=== PATIENT | female | born 2000 | race African-American/Black ===

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

== ENCOUNTER 2019-01-25 03:59 | Outpatient (CLI) | payer MEDICAID ==
[2019-01-25 04:34] LABS: APPEARANCE,URINE CLEAR; BILIRUBIN,URINE NEGATIVE (NEGATIVE); COLOR,URINE STRAW; GLUCOSE, URINE NEGATIVE (NEGATIVE); KETONES,URINE NEGATIVE (NEGATIVE); LEUKOCYTE ESTERASE,URINE SMALL (NEGATIVE); NITRITE,URINE NEGATIVE (NEGATIVE); PROTEIN,URINE NEGATIVE (NEGATIVE); URINE SPECIFIC GRAVITY 1.012; UROBILINOGEN,URINE NEGATIVE mg/dL (<2.0)
[2019-01-25 04:52] LABS: URINE AMPHETAMINES SCREEN NEGATIVE; URINE BARBITURATES SCREEN NEGATIVE; URINE BENZODIAZEPINES SCREEN NEGATIVE; URINE COCAINE SCREEN NEGATIVE; URINE MARIJUANA (THC) SCREEN NEGATIVE; URINE METHADONE SCREEN NEGATIVE; URINE PHENCYCLIDINE SCREEN NEGATIVE
[2019-01-25] MEDS ORDERED: HYDROXYZINE PAMOATE 50 MG CAPSULE ONE (05:52)
[2019-01-25] MEDS ORDERED: ACETAMINOPHEN 325 MG TABLET ONE (05:53)
--- NOTE | 2019-01-25 06:08 | Non Stress Test Report ---
Non Stress Test Datetime Report Generated by CPN: 01/25/2019 06:08 DEMOGRAPHIC EGA NST: 37.6 INDICATION Indication for Study: Ordered by Provider Indication for Study (NST) Other: LC MONITORING Monitor Explained: Monitor Explained; Test Explained; Patient Verbalized Understanding Time on Monitor: 01/25/2019 04:12 Time off Monitor: 01/25/2019 04:36 NST Duration: 24 NST INTERVENTIONS NST Interventions: PO Hydration Physician Notified NST: Dr. Clarence BABY A: [id number] BABY A Movement : Present Contraction Frequency : 3-5 FHR Baseline : 125 Accelerations : 15X15 Decelerations : None Variability : Moderate 6-25bpm NST Review: Meets Criteria for Reactive NST NST Review and Verified By : Paul Bennett RN NST Results: Reactive NST REPORT Report Trigger: Send Report
== END 2019-01-25 06:04 | disposition home or self-care (01) ==
LOC: LC 03:59
PROVIDERS: ATTEND Obstetrics & Gynecology
PROC: 4A1HXCZ Monitoring of Products of Conception, Cardiac Rate, External Approach (ICD-10-PCS; principal; 2019-01-25)
DX: O47.1 False labor at or after 37 completed weeks of gestation (principal); Z3A.37 37 weeks gestation of pregnancy
CPT/HCPCS: 59025; 81005; 80307; J3490 ×2

== ENCOUNTER 2019-01-26 03:45 | Inpatient (IN) | payer MEDICAID ==
[2019-01-26] MEDS ORDERED: PENICILLIN G POTASSIUM 5,000,000 UNIT in DEXTROSE 5%-WATER 100 ML IV ONE (04:01)
[2019-01-26] MEDS ORDERED: RINGERS SOLUTION,LACTATED 1,000 ML IV PRN (04:01)
[2019-01-26] MEDS ORDERED: OXYTOCIN 10 UNIT/ML VIAL ONE (04:05)
[2019-01-26] MEDS ORDERED: LIDOCAINE 1% INJ-PF (10 MG/ML) 30 ML SDV ONE ×2 (04:05→05:22)
[2019-01-26] MEDS ORDERED: PENICILLIN G-K 5 MILLION UNIT VIAL ONE (04:05)
[2019-01-26] MEDS ORDERED: MISOPROSTOL 0.2 MG TABLET ONE (04:05)
[2019-01-26] MEDS ORDERED: OXYTOCIN/NORMAL SALINE 20 UNIT/1,000 ML RTUINJ ONE (04:05)
[2019-01-26] MEDS ORDERED: ONDANSETRON HCL INJ/PF 4 MG/2 ML SDV ONE (04:37)
[2019-01-26] MEDS ORDERED: ONDANSETRON HCL INJ/PF 4 MG/2 ML SDV IV ONE ×2 (04:38→04:57)
[2019-01-26 04:40] LABS: HEMATOCRIT 34.4 % (36.0-47.0); HEMOGLOBIN 11.3 g/dL (12.0-15.5); MEAN CORPUSCULAR HEMOGLOBIN 27.2 pg (27.0-33.4); MEAN CORPUSCULAR HGB CONC 32.9 g/dL (32.0-36.0); MEAN CORPUSCULAR VOLUME 83 fl (80-97); PLATELET COUNT 239 10^3/uL (150-450); RED BLOOD COUNT 4.15 10^6/uL (3.72-5.28); WHITE BLOOD COUNT 14.7 10^3/uL (4.0-10.5)
[2019-01-26 05:02] LABS: ANISOCYTOSIS 1+; BAND NEUTROPHILS % (MANUAL) 1 % (3-5); BASOPHILS % (MANUAL) 0 % (0-2); EOSINOPHILS % (MANUAL) 0 % (0-6); LYMPHOCYTES % (MANUAL) 0 % (13-45); MONOCYTES % (MANUAL) 0 % (3-13); SEGMENTED NEUTROPHILS % (MAN) 99 % (42-78); TOTAL CELLS COUNTED 100
[2019-01-26 05:03] LABS: PLATELET COMMENT ADEQUATE
[2019-01-26] MEDS ORDERED: OXYTOCIN/NORMAL SALINE 20 UNIT/1,000 ML RTUINJ IV PRN (05:41)
[2019-01-26] MEDS ORDERED: ZOLPIDEM TARTRATE 5 MG TABLET PO PRN (05:41)
[2019-01-26] MEDS ORDERED: ACETAMINOPHEN 325 MG TABLET PO PRN (05:41)
[2019-01-26] MEDS ORDERED: DIBUCAINE 1% OINTMENT 56 GM TP PRN (05:41)
[2019-01-26] MEDS ORDERED: PROMETHAZINE HCL 25 MG SUPP.RECT PR PRN (05:41)
[2019-01-26] MEDS ORDERED: DIPHENHYDRAMINE HCL 25 MG CAPSULE PO PRN (05:41)
[2019-01-26] MEDS ORDERED: GLYCERIN/WITCH HAZEL LEAF 1 EACH MED..WIPE TP PRN (05:41)
[2019-01-26] MEDS ORDERED: NA PHOS,M-B/NA PHOS,DI-BA (ADULT) 133 ML ENEMA PR PRN (05:41)
[2019-01-26] MEDS ORDERED: MAGNESIUM HYDROXIDE SUSP 30 ML UDCUP PO PRN (05:41)
[2019-01-26] MEDS ORDERED: BENZOCAINE/MENTHOL AEROSOL SPRAY 56 ML TOP PRN (05:41)
[2019-01-26] MEDS ORDERED: DIPH/PERTUSS(ACELL)/TETANUS VAC/PF 0.5 ML SYR (>=10YO) IM PRN (05:41)
[2019-01-26] MEDS ORDERED: MISOPROSTOL 0.2 MG TABLET PR PRN (05:41)
[2019-01-26] MEDS ORDERED: MEASLES,MUMPS&RUBELLA VACC/PF 0.5 ML VIAL SUBCUT PRN (05:41)
[2019-01-26] MEDS ORDERED: PROMETHAZINE HCL 25 MG TABLET PO PRN (05:41)
[2019-01-26] MEDS ORDERED: PSEUDOEPHEDRINE HCL 30 MG TABLET PO PRN (05:41)
[2019-01-26] MEDS ORDERED: ACETAMINOPHEN WITH CODEINE #3 TABLET PO PRN ×2 (05:41)
[2019-01-26] MEDS ORDERED: PROMETHAZINE HCL INJ 25 MG/1 ML VIAL IV PRN (05:41)
[2019-01-26] MEDS ORDERED: IBUPROFEN 800 MG TABLET ONE (06:06)
[2019-01-26] MEDS: IBUPROFEN 800 MG TABLET PO SCH ×3 (06:07→21:49)
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
--- NOTE | 2019-01-26 06:37 | Warning Signs in Babies ---
VOD Warning Signs Datetime Report Generated by [facility]: 01/26/2019 06:36 VOD#608 -Warning Signs in Babies: Viewed with Parent(s)/Family (01/26/2019 06:30:Yandy Miles RN)
[2019-01-26 06:56] LABS: CHLAM PCR NOT DETECTED (NOT DETECT)
--- NOTE | 2019-01-26 08:08 | Delivery Summary ---
Del Sum A-C Datetime Report Generated by CPN: 01/26/2019 08:07 DELIVERY PERSONNEL DELIVERY PERSONNEL: [id number] Delivery Doctor:: Heather Ledezma MD Labor and Delivery Nurse:: Yandy Miles RNlink trainer teacher Nurse:: Evelyn Mukherjee RN Stunt Performer:: Suzanne Mercer RN Nursery Nurse:: Patty Hernández RN Polishing Machine Operator/RUBBER PRESS OPERATOR: Loren Alonso, ST MATERNAL INFORMATION Delivery Anesthesia: Pudendal Medications After Delivery: Pitocin Drip 20 Units/1000ml NSS; Cytotec 1000mcg Per Rectum/Vagina Meds After Delivery Comment: Pitocin 20 units in 1,000 mL NS bolusing Estimated Blood Loss (ml): 179 Delivery QBL: 179 Delivery QBL Comment: 179ml Maternal Complications: Precipitous Labor (<3hrs) Provider Comments: Pt was AL then SROM then complete and desiered ot push. Reviewed pain management options with patient since she was not going to make it to get an epidural. SheVMI delivered in SUSAN presentation. No nuchal cord. Shoulders and body delivered without difficulty. cord doubly clamped and cut and infant to maternal abdomen for NRP. Bilateral labial laceration repaired with good hemostasis. uterine tone responded to cytotec 1000mcg ID. Placenta delivered intact spontaneously. LABOR SUMMARY EDC: 02/09/2019 00:00 No. Babies in Womb: 1 Attempted: No Labor Anesthesia: None LABOR INFORMATION Reason for Induction: Not Applicable Onset of Labor: 01/26/2019 03:50 Complete Dilatation: 01/26/2019 05:08 Group B Beta Strep: Unknown Antibiotics # of Doses: 1 Name of Antibiotic Given: pcn Steroids Given: None Reason Steroids Not Administered: Not Applicable MEMBRANES Membranes Rupture Method: Spontaneous Rupture of Membranes: 01/26/2019 05:06 Length of Rupture (hr): 0.18 Amniotic Fluid Color: Clear Amniotic Fluid Amount: Moderate Amniotic Fluid Odor: Normal STAGES OF LABOR Stage 1 hr: 1 Stage 1 min: 18 Stage 2 hr: 0 Stage 2 min: 9 Stage 3 hr: 0 Stage 3 min: 3 Total Time in Labor hr: 1 Total Time in Labor min: 30 VAGINAL DELIVERY Episiotomy: None Laceration #1: Vaginal Laceration Extension #1: N/A Other Laceration: Bilateral labial tear Laceration Repair: Yes Sponge Count Correct: Yes Sharps Count Correct: Yes CSECTION DELIVERY Primary Indication: N/A Secondary Indication: N/A CSection Incidence: N/A Labor: N/A Elective: N/A CSection Incision: N/A BABY A INFORMATION Infant Delivery Date/Time: 01/26/2019 05:17 Method of Delivery: Vaginal Born in Route : No : N/A Forceps: N/A Vacuum Extraction: N/A Shoulder Dystocia : No PRESENTATION/POSITION BABY A Presentation: Cephalic Cephalic Presentation: Vertex Vertex Position: Right Occipital Anterior Breech Presentation: N/A PLACENTA INFORMATION BABY A Placenta Delivery Time : 01/26/2019 05:20 Placenta Method of Delivery: Spontaneous Placenta Status: Delivered SCORES BABY A Heart Rate 1 min: >100 bpm Resp Effort 1 min: Good Cry Reflex Irritability 1 min: Cough or Sneeze or Pulls Away Muscle Tone 1 min: Active Motion Color 1 min: Blue/Pale Resuscitation Effort 1 min: Tactile Stimulation SCORE 1 MIN: 8 Heart Rate 5 min: >100 bpm Resp Effort 5 min: Good Cry Reflex Irritability 5 min: Cough or Sneeze or Pulls Away Muscle Tone 5 min: Active Motion Color 5 min: Body [place], Extremities Blue SCORE 5 MIN: 9 INFANT INFORMATION BABY A Gestational Age at Delivery: 38.0 Gestational Status: Early Term- 37- 38.6 Weeks Infant Outcome : Liveborn Infant Condition : Stable Sex: Male IDENTIFICATION BABY A Infant Verification Date/Time: 01/26/2019 05:38 ID Band Number: [id number] Mother's Name Verified: Yes Infant RN Verifying : NDoyle RN CGentilin RN WEIGHT/LENGTH BABY A Birthweight (gm): 2935 Weight (lb): 6 Infant Weight (oz): 8 Length (in): 19.00 Length (cm): 48.26 CORD INFORMATION BABY A No. Cord Vessels: 3 Nuchal Cord : N/A Cord Blood Taken: Yes-For Storage (Mom's Blood type +) Suction: Mouth ASSESSMENT BABY A Skin to Skin: Yes Skin to Skin Time (min): 60 Transferred To: Remains with Mother BABY B INFORMATION : N/A SIGNATURES Signature: with User ID: [email or web address]
[2019-01-26] MEDS: SENNOSIDES/DOCUSATE 8.6-50 MG 1 EACH TABLET PO SCH (09:33)
[2019-01-26] MEDS: DOCUSATE SODIUM 100 MG CAPSULE PO SCH ×2 (09:33→17:38)
[2019-01-26] MEDS: PRENATAL VITAMIN W DHA CAPSULE PO SCH (09:33)
[2019-01-26] MEDS: FERROUS SULFATE 325 MG TABLET PO SCH ×2 (09:33→17:38)
[2019-01-26] MEDS: FAMOTIDINE 20 MG TABLET PO SCH ×2 (09:33→21:49)
[2019-01-26] MEDS: PENICILLIN G POTASSIUM 2,500,000 UNIT in DEXTROSE 5%-WATER 50 ML IV SCH ×2 (10:14→18:40)
[2019-01-27] MEDS: IBUPROFEN 800 MG TABLET PO SCH ×3 (06:08→22:05)
[2019-01-27 08:38] LABS: HEMATOCRIT 27.7 % (36.0-47.0); MEAN CORPUSCULAR HEMOGLOBIN 27.7 pg (27.0-33.4); MEAN CORPUSCULAR HGB CONC 33.1 g/dL (32.0-36.0); MEAN CORPUSCULAR VOLUME 84 fl (80-97); PLATELET COUNT 182 10^3/uL (150-450); RED BLOOD COUNT 3.31 10^6/uL (3.72-5.28); RED CELL DISTRIBUTION WIDTH 15.8 % (11.5-14.0); WHITE BLOOD COUNT 12.2 10^3/uL (4.0-10.5)
[2019-01-27 08:40] LABS: HEMOGLOBIN 9.2 g/dL (12.0-15.5)
[2019-01-27] MEDS: FERROUS SULFATE 325 MG TABLET PO SCH ×2 (10:04→17:18)
[2019-01-27] MEDS: FAMOTIDINE 20 MG TABLET PO SCH ×2 (10:04→22:06)
[2019-01-27] MEDS: ASPIRIN 81 MG TABLET, CHEWABLE PO SCH (10:04)
[2019-01-27] MEDS: PRENATAL VITAMIN W DHA CAPSULE PO SCH (10:05)
[2019-01-27] MEDS: SENNOSIDES/DOCUSATE 8.6-50 MG 1 EACH TABLET PO SCH (10:05)
[2019-01-27] MEDS: DOCUSATE SODIUM 100 MG CAPSULE PO SCH ×2 (10:05→17:18)
--- NOTE | 2019-01-27 14:02 | PDOC PROGRESS REPORT ---
Subjective-OB Progress Note for:: 01/27/19 Subjective: reports bleeding slowing, pain controlled with current meds. denies needs Physical Exam (OB) Vital Signs: Temp Pulse Resp BP Pulse Ox 98.0 F 73 17 127/81 H 100 01/27/19 07:20 01/27/19 07:20 01/27/19 07:20 01/27/19 07:20 01/27/19 07:20 Intake & Output 01/26/19 01/27/19 01/28/19 06:59 06:59 06:59 Intake Total 480 Balance 480 Weight 59.1 kg - Abdomen Description: Soft, Round Hernia Present: No Fundal Description: Firm, Midline Fundal Height: u/u - u/2 - Abdominal Distension: No distension Tenderness: Nontender - Extremities Lower extremities: Arjun's sign - neg Calf: Normal, Nontender Objective-Diagnostic Laboratory: 01/27/19 07:50 01/27/19 07:50 WBC 12.2 H RBC 3.31 L Hgb 9.2 L D Hct 27.7 L MCV 84 MCH 27.7 MCHC 33.1 RDW 15.8 H Plt Count 182 Assessment and Plan(PN) - Assessment and Plan (1) Normal vaginal delivery Is this a current diagnosis for this admission?: Yes (2) Obstetrical laceration Is this a current diagnosis for this admission?: Yes (3) History of mantilla Is this a current diagnosis for this admission?: No - Time Spent with Patient Time with patient: Less than 15 minutes Medications reviewed and adjusted accordingly: Yes - Disposition Anticipated Discharge: Home Within: within 24 hours
[2019-01-28] MEDS: IBUPROFEN 800 MG TABLET PO SCH ×2 (08:12→15:20)
[2019-01-28 08:15] VITALS: BP 119/56
[2019-01-28] MEDS: FERROUS SULFATE 325 MG TABLET PO SCH (09:32)
[2019-01-28] MEDS: SENNOSIDES/DOCUSATE 8.6-50 MG 1 EACH TABLET PO SCH (09:32)
[2019-01-28] MEDS: ASPIRIN 81 MG TABLET, CHEWABLE PO SCH (09:32)
[2019-01-28] MEDS: PRENATAL VITAMIN W DHA CAPSULE PO SCH (09:32)
[2019-01-28] MEDS: FAMOTIDINE 20 MG TABLET PO SCH (09:32)
[2019-01-28] MEDS: DOCUSATE SODIUM 100 MG CAPSULE PO SCH (09:33)
--- NOTE | 2019-01-28 10:54 | PDOC DISCHARGE SUMMARY ---
Final Diagnosis Discharge Date: 01/28/19 - Final Diagnosis (1) Gestational diabetes mellitus (GDM) Is this a current diagnosis for this admission?: Yes (2) History of mantilla Is this a current diagnosis for this admission?: Yes (3) Normal vaginal delivery Is this a current diagnosis for this admission?: Yes (4) Obstetrical laceration Is this a current diagnosis for this admission?: Yes Discharge Data - Discharge Medication Home Medications: Acetaminophen [Tylenol] 325 mg PO DAILY 01/25/19 Diphenhydramine HCl [Benadryl] 25 mg PO DAILY 01/25/19 Aspirin [Aspirin 81 mg Chewable Tablet] 81 mg PO DAILY 01/26/19 95/Iron Fum/Folic/Dha [ + Dha Combo Pack] 1 tab PO DAILY 01/26/19 Reason(s) for Admission: Onset of Labor, Gestional Diabetes, Other Procedures: NST Intrapartum Procedure(s): Spontaneous Vaginal Delivery Complication(s): Laceration-Vaginal, Laceration-Periurethral Laceration-Degree: 1st - Diagnosis Test Laboratory: Temp Pulse Resp BP Pulse Ox 98.4 F 72 18 119/56 L 100 01/28/19 10:31 01/28/19 10:31 01/28/19 10:31 01/28/19 07:48 01/28/19 10:31 01/26/19 01/27/19 04:20 07:50 RBC 4.15 3.31 L Hgb 11.3 L 9.2 L D Hct 34.4 L 27.7 L - Discharge information/Instructions Discharge Activity: Balance Activity w/Rest, Pelvic Rest Discharge Diet: Regular Disposition: HOME, SELF-CARE Follow up with: [facility] in: 4, Weeks
== END 2019-01-28 18:00 | disposition home or self-care (01) | DRG 807 ==
LOC: LC 03:45 → LR 04:02 → 2S 09:20
PROVIDERS: ADMIT Student in an Organized Health Care Education/Training Program; ATTEND Student in an Organized Health Care Education/Training Program
PROC: 10E0XZZ Delivery of Products of Conception, External Approach (ICD-10-PCS; principal; 2019-01-26)
PROC: 0HQ9XZZ Repair Perineum Skin, External Approach (ICD-10-PCS; 2019-01-26)
DX: O24.429 Gestational diabetes mellitus in childbirth, unspecified control (principal); Z37.0 Single live birth; O62.3 Precipitate labor; O70.0 First degree perineal laceration during delivery; Z3A.38 38 weeks gestation of pregnancy; Z91.19 Patient's noncompliance with other medical treatment and regimen; Z87.828 Personal history of other (healed) physical injury and trauma
CPT/HCPCS: 36415; 85025; 85027; 86592; 86850; 86900; 86901; 87491; 87591; 88307; J2405; J2540; J2590; J3490; J7060

== ENCOUNTER 2020-02-05 17:25 | Emergency (ER) | payer SELFPAY ==
--- NOTE | 2020-02-05 18:09 | ER Document Report ---
ED Medical Screen (RME) - General Chief Complaint: Abdominal Cramping Stated Complaint: ABDOMINAL CRAMPING Time Seen by Provider: 02/05/20 17:44 Primary Care Provider: SHANTI CASTANON MD [Primary Care Provider] - Follow up as needed TRAVEL OUTSIDE OF THE [place] IN LAST 30 DAYS: No - HPI Notes: 02/05/20 18:06 19-year-old female to the emergency department with complaints of fatigue, lightheadedness, abdominal cramping, body aches that has been going on for several weeks. She states that she is . She states her last menstrual period was in August. She states she has not called [facility]ERIES TECHNICIAN for this and has not had an ultrasound to confirm the either. She states that last night she had a little bit of some vaginal spotting and abdominal cramping. Denies any painful urination. She states that she is been in between homes. She was in [place] initially and then down here to [place] and all of her appointments kind of got jumbled up. She is post to go to the health department here in the next coming weeks but she got concerned when she saw the spotting and has been progressively feeling more lightheaded. She also admits that she eats ice nearly every single day. On brief medical screening exam fundus is above the umbilicus of her gravid abdomen. She is pale. She does not appear to be actively charu or in abdominal pain. Abdomen is nontender to palpation. Notified ultrasound of patient and they will go ahead and get the ultrasound done. I also notified charge about the patient and she will get a bed for her. I performed a brief medical screening exam on the patient determined that the patient needs further evaluation and management by main side provider. I have placed initial orders to help expedite care. - Related Data Allergies/Adverse Reactions: No Known Allergies Allergy (Verified 01/26/19 04:32) Home Medications: tylenol Past Medical History - Social History Chew tobacco use (# tins/day): No Frequency of alcohol use: None Drug Abuse: None Renal/ Medical History: Denies: Hx Peritoneal Dialysis Physical Exam - Vital signs Vitals: Temp Pulse Resp BP Pulse Ox 97.7 F 99 20 128/58 H 97 02/05/20 17:40 02/05/20 17:40 02/05/20 17:40 02/05/20 17:40 02/05/20 17:40 Course - Vital Signs Vital signs: Temp Pulse Resp BP Pulse Ox 97.7 F 99 20 128/58 H 97 02/05/20 18:01 02/05/20 17:40 02/05/20 17:40 02/05/20 17:40 02/05/20 17:40 Doctor's Discharge - Discharge Referrals: SHANTI CASTANON MD [Primary Care Provider] - Follow up as needed
--- NOTE | 2020-02-05 19:08 | RADIOLOGY REPORT (SQ) ---
EXAM DESCRIPTION: U/S OB LIMITED IMAGES COMPLETED DATE/TIME: 02/05/2020 6:57 pm REASON FOR STUDY: , unknown weeks, fundus above umbilicus COMPARISON: None. TECHNIQUE: Static and Dynamic grayscale imaging performed of gravid uterus using transabdominal appr oach. Additional selected color Doppler and spectral images recorded. All stored on PACS. LIMITATIONS: None. FINDINGS: FETUSES SEEN:1 EGA: 29 weeks 1 day Calculated using BPD,FL,HC,AC documented on images. KIT: 04/21/2020 EFW: 1335 grams PEDRO: 9.5 cm PLACENTA: Posterior fundal PRESENTATION: Cephalic. HEART RATE: 150 beats per minute. MATERNAL ADNEXA: Maternal ovaries not visualized. CERVICAL LENGTH: 3.5 cm Closed. OTHER: No other significant finding. IMPRESSION: LIVING INTRAUTERINE . ESTIMATED GESTATIONAL AGE 29 weeks 1 day Trimester of : Third trimester - 28 weeks to delivery. TECHNICAL DOCUMENTATION: JOB ID: [id number] [id number] 2010 [employer]- All Rights Reserved Reading location - IP/workstation name: [email or web address]
[2020-02-05 20:21] LABS: ABSOLUTE LYMPHOCYTES (AUTO) 1.3 10^3/uL (0.5-4.7); ABSOLUTE MONOCYTES (AUTO) 0.5 10^3/uL (0.1-1.4); ABSOLUTE NEUT (AUTO) 7.1 10^3/uL (1.7-8.2); BASOPHILS % (AUTO) 0.3 % (0-2); EOSINOPHILS % (AUTO) 0.2 % (0-6); HEMATOCRIT 29.7 % (36.0-47.0); HEMOGLOBIN 9.9 g/dL (12.0-15.5); MEAN CORPUSCULAR HEMOGLOBIN 27.5 pg (27.0-33.4); MEAN CORPUSCULAR HGB CONC 33.2 g/dL (32.0-36.0); MEAN CORPUSCULAR VOLUME 83 fl (80-97); MONOCYTES % (AUTO) 5.7 % (3-13); PLATELET COUNT 240 10^3/uL (150-450); RED BLOOD COUNT 3.58 10^6/uL (3.72-5.28); SEGMENTED NEUTROPHILS % (AUTO) 79.8 % (42-78); TOTAL CELLS COUNTED % (AUTO) 100 %
--- NOTE | 2020-02-05 20:23 | EKG REPORT ---
SEVERITY:- ABNORMAL ECG - SINUS TACHYCARDIA NONSPECIFIC T ABNORMALITIES, DIFFUSE LEADS : Confirmed by: Sara Mcclure MD 05-Feb-2020 20:23:27
[2020-02-05 20:36] LABS: APPEARANCE,URINE CLEAR; BILIRUBIN,URINE NEGATIVE (NEGATIVE); COLOR,URINE YELLOW; GLUCOSE, URINE NEGATIVE (NEGATIVE); KETONES,URINE NEGATIVE (NEGATIVE); PROTEIN,URINE 30 mg/dL (NEGATIVE); URINE SPECIFIC GRAVITY 1.025; UROBILINOGEN,URINE NEGATIVE mg/dL (<2.0)
--- NOTE | 2020-02-05 20:38 | ER Document Report ---
ED GI/ - General Chief Complaint: Abdominal Cramping Stated Complaint: ABDOMINAL CRAMPING Time Seen by Provider: 02/05/20 17:44 Primary Care Provider: SHANTI CASTANON MD [ACTIVE STAFF] - Follow up tomorrow Mode of Arrival: Ambulatory Information source: Patient Notes: Patient presents with lower pelvic cramping for the past several weeks. Patient is G2, P1 although uncertain how far long she is in this . Patient has not had care during this . Patient recently relocated to this area and has had difficulty in getting follow-up. Patient states that occasionally she will have dizziness with standing. Patient states that the dizziness resolves whenever she sits and eats ice chips. Patient denies any concerns about STI. TRAVEL OUTSIDE OF THE U.S. IN LAST 30 DAYS: No - HPI Patient complains to provider of: Pelvic pain, , Vaginal bleeding - Spotting yesterday. No: Dysuria, Vomiting Onset: Other - Several weeks Timing/Duration: Persistent Quality of pain: Cramping Pain Level: 1 Context: Location: Pelvis Vaginal bleeding (Compared to normal period): Spotting - Yesterday now resolved Associated symptoms: denies: Constipation, Diarrhea, Dysuria, Fever, Urinary hesitancy, Urinary frequency, Urinary retention, Urinary urgency, Vaginal discharge Exacerbated by: Denies Relieved by: Denies Similar symptoms previously: No Recently seen / treated by doctor: No - Related Data Allergies/Adverse Reactions: No Known Allergies Allergy (Verified 01/26/19 04:32) Home Medications: tylenol Past Medical History - General Information source: Patient - Social History Smoking Status: Never Smoker Chew tobacco use (# tins/day): No Frequency of alcohol use: None Drug Abuse: None Occupation: None Family History: Reviewed & Not Pertinent - Medical History Medical History: Negative Renal/ Medical History: Denies: Hx Peritoneal Dialysis Past Surgical History: Reports: Other - Skin grafts Review of Systems - Review of Systems Constitutional: No symptoms reported. denies: Fever EENT: No symptoms reported Cardiovascular: Dizziness. denies: Chest pain, Dyspnea Respiratory: No symptoms reported. denies: Cough, Short of breath Gastrointestinal: Abdominal pain. denies: Diarrhea, Nausea, Vomiting Genitourinary: No symptoms reported. denies: Dysuria, Flank pain Female Genitourinary: , Vaginal bleeding - Yesterday spotting, now resolved. denies: Vaginal discharge Musculoskeletal: No symptoms reported. denies: Back pain Skin: No symptoms reported Hematologic/Lymphatic: No symptoms reported Neurological/Psychological: No symptoms reported Physical Exam - Vital signs Vitals: Temp Pulse Resp BP Pulse Ox 97.7 F 99 20 128/58 H 97 02/05/20 17:40 02/05/20 17:40 02/05/20 17:40 02/05/20 17:40 02/05/20 17:40 - Notes Notes: PHYSICAL EXAMINATION: GENERAL: Well-appearing and in no acute distress. HEAD: Atraumatic, normocephalic. EYES: sclera anicteric, conjunctiva are normal. ENT: nares patent. Moist mucous membranes. NECK: Normal range of motion, supple without lymphadenopathy LUNGS: CTAB and equal. No wheezes rales or rhonchi. HEART: Regular rate and rhythm without murmurs ABDOMEN: Gravid abdomen, soft, nontender, normal bowel sounds, no guarding. EXTREMITIES: Normal range of motion, no pitting edema. No cyanosis. BACK: No CVA tenderness NEUROLOGICAL: Cranial nerves grossly intact. Normal speech. PSYCH: Normal mood, normal affect. SKIN: Warm, Dry, normal turgor, no rashes or lesions noted Course - Re-evaluation Re-evalutation: 02/05/20 21:36 Patient is greater than 20 weeks and reports some lower pelvic cramping. No acute abnormality noted on ultrasound. Patient does have some bacteria as well as small amount of leukocyte esterase on urinalysis, culture will be obtained and patient started on a short course of antibiotics. Patient initially presented with some tachycardia although does not have any chest pain, dyspnea or lightheadedness at this time. Patient is mildly anemic although not at a transfuse appropriate level. Patient states that she has a known history of anemia. Patient will be discharged from the ER and then reregistered for a labor check. Patient is agreeable with this plan of care. 02/05/20 21:43 - Vital Signs Vital signs: Temp Pulse Resp BP Pulse Ox 97.7 F 99 20 128/58 H 97 02/05/20 18:01 02/05/20 17:40 02/05/20 17:40 02/05/20 17:40 02/05/20 17:40 - Laboratory Result Diagrams: 02/05/20 20:05 02/05/20 20:05 Laboratory results interpreted by me: 02/05/20 02/05/20 02/05/20 19:50 20:05 20:05 RBC 3.58 L Hgb 9.9 L Hct 29.7 L Seg Neutrophils % 79.8 H Sodium 135.6 L Carbon Dioxide 21 L Creatinine 0.51 L Beta HCG, Quant 74978.00 H Urine Protein 30 H Leukocyte Esterase Rfl SMALL H 02/05/20 21:37 Labs- All tests 24 hr 02/05/20 02/05/20 02/05/20 19:50 20:05 20:05 WBC 9.0 RBC 3.58 L Hgb 9.9 L Hct 29.7 L MCV 83 MCH 27.5 MCHC 33.2 RDW 14.0 Plt Count 240 Lymph % (Auto) 14.0 [place] % (Auto) 5.7 Eos % (Auto) 0.2 Baso % (Auto) 0.3 Absolute Neuts (auto) 7.1 Absolute Lymphs (auto) 1.3 Absolute Monos (auto) 0.5 Absolute Eos (auto) 0.0 Absolute Basos (auto) 0.0 Seg Neutrophils % 79.8 H Sodium 135.6 L Potassium 3.7 Chloride 106 Carbon Dioxide 21 L Anion Gap 9 BUN 13 Creatinine 0.51 L Est GFR ( Amer) > 60 Est GFR (MDRD) Non-Af > 60 Glucose 92 Calcium 8.7 Magnesium 1.8 Total Bilirubin 0.5 Direct Bilirubin 0.2 Neonat Total Bilirubin Not Reportable Neonat Direct Bilirubin Not Reportable Neonat Indirect Bili Not Reportable AST 19 ALT 8 Alkaline Phosphatase 86 Total Protein 6.6 Albumin 3.5 Beta HCG, Quant 14593.00 H Total Beta HCG POSITIVE Urine Color YELLOW Urine Appearance CLEAR Urine pH 5.0 Ur Specific [place] 1.025 Urine Protein 30 H Urine Glucose (UA) NEGATIVE Urine Ketones NEGATIVE Urine Blood NEGATIVE Urine Nitrite (Reflex) NEGATIVE Urine Bilirubin NEGATIVE Urine Urobilinogen NEGATIVE Leukocyte Esterase Rfl SMALL H Urine RBC (Auto) 0 Urine Bacteria (Auto) TRACE Urine WBC (Reflex) 8 Squamous Epi Cells Auto 7 Urine Mucus (Auto) MANY Urine Ascorbic Acid NEGATIVE Blood Type Antibody Screen Rhogam Indicated 02/05/20 02/05/20 20:05 20:05 WBC RBC Hgb Hct MCV MCH MCHC RDW Plt Count Lymph % (Auto) [place] % (Auto) Eos % (Auto) Baso % (Auto) Absolute Neuts (auto) Absolute Lymphs (auto) Absolute Monos (auto) Absolute Eos (auto) Absolute Basos (auto) Seg Neutrophils % Sodium Potassium Chloride Carbon Dioxide Anion Gap BUN Creatinine Est GFR ( Amer) Est GFR (MDRD) Non-Af Glucose Calcium Magnesium Total Bilirubin Direct Bilirubin Neonat Total Bilirubin Neonat Direct Bilirubin Neonat Indirect Bili AST ALT Alkaline Phosphatase Total Protein Albumin Beta HCG, Quant Total Beta HCG Urine Color Urine Appearance Urine pH Ur Specific [place] Urine Protein Urine Glucose (UA) Urine Ketones Urine Blood Urine Nitrite (Reflex) Urine Bilirubin Urine Urobilinogen Leukocyte Esterase Rfl Urine RBC (Auto) Urine Bacteria (Auto) Urine WBC (Reflex) Squamous Epi Cells Auto Urine Mucus (Auto) Urine Ascorbic Acid Blood Type Cancelled A POSITIVE Antibody Screen NEGATIVE Rhogam Indicated Cancelled - Diagnostic Test Radiology reviewed: Reports reviewed - EKG Interpretation by Me EKG shows normal: Sinus rhythm Rate: Tachycardia When compared to previous EKG there are: Previous EKG unavailable Additional EKG results interpreted by me: 02/05/20 21:41 Sinus tachycardia with a rate of 110, QTc 455. Patient with nonspecific T abnormalities in leads III, aVF, V1-V5, no prior EKG available for comparison. Discharge - Discharge Clinical Impression: Intrauterine , Pelvic cramping, Vaginal spotting Anemia Qualifiers: Anemia type: unspecified type Qualified Code(s): D64.9 - Anemia, unspecified Condition: Stable Disposition: HOME, SELF-CARE Instructions: Anemia ([facility]), Cephalexin ([facility]), Pelvic Pain in ([facility]), Urinary Tract Infection ([facility]) Additional Instructions: Return immediately for any new or worsening symptoms Followup with your primary care provider, call tomorrow to make a followup appointment Follow-up directly with labor and delivery for a labor check Referrals: SHANTI CASTANON MD [ACTIVE STAFF] - Follow up tomorrow
[2020-02-05 20:44] LABS: ALBUMIN 3.5 g/dL (3.5-5.0); ALKALINE PHOSPHATASE 86 U/L (38-126); ANION GAP 9 (5-19); ASPARTATE AMINO TRANSFERASE 19 U/L (14-36); BILIRUBIN,DIRECT 0.2 mg/dL (0.0-0.4); BILIRUBIN,TOTAL 0.5 mg/dL (0.2-1.3); BLOOD UREA NITROGEN 13 mg/dL (7-20); CALCIUM 8.7 mg/dL (8.4-10.2); CARBON DIOXIDE 21 mmol/L (22-30); CHLORIDE 106 mmol/L (98-107); GLUCOSE 92 mg/dL (75-110); POTASSIUM 3.7 mmol/L (3.6-5.0); TOTAL PROTEIN 6.6 g/dL (6.3-8.2)
[2020-02-05] MEDS ORDERED: CEPHALEXIN 500 MG CAPSULE PO ONE (21:30)
[2020-02-05 22:20] VITALS: BP 122/69
== END 2020-02-05 22:18 | disposition home or self-care (01) ==
LOC: ER 17:25
DX: O26.93 Pregnancy related conditions, unspecified, third trimester (principal); R10.2 Pelvic and perineal pain; O99.013 Anemia complicating pregnancy, third trimester; O26.853 Spotting complicating pregnancy, third trimester; Z3A.29 29 weeks gestation of pregnancy
CPT/HCPCS: 36415; 76815; 80053; 81001; 83735; 84702; 85025; 86850; 86900; 86901; 87086; 93005; 93010; 99285

== ENCOUNTER 2020-02-05 22:28 | Outpatient (CLI) | payer SELFPAY ==
[2020-02-05 23:33] LABS: APPEARANCE,URINE CLEAR; BILIRUBIN,URINE NEGATIVE (NEGATIVE); COLOR,URINE STRAW; GLUCOSE, URINE NEGATIVE (NEGATIVE); KETONES,URINE TRACE mg/dL (NEGATIVE); LEUKOCYTE ESTERASE,URINE NEGATIVE (NEGATIVE); NITRITE,URINE NEGATIVE (NEGATIVE); PROTEIN,URINE NEGATIVE (NEGATIVE); URINE SPECIFIC GRAVITY 1.006; UROBILINOGEN,URINE NEGATIVE mg/dL (<2.0)
[2020-02-05 23:43] LABS: URINE AMPHETAMINES SCREEN NEGATIVE; URINE BARBITURATES SCREEN NEGATIVE; URINE BENZODIAZEPINES SCREEN NEGATIVE; URINE COCAINE SCREEN NEGATIVE; URINE MARIJUANA (THC) SCREEN NEGATIVE; URINE METHADONE SCREEN NEGATIVE; URINE PHENCYCLIDINE SCREEN NEGATIVE
== END 2020-02-06 00:39 | disposition home or self-care (01) ==
LOC: LC 22:28
PROVIDERS: ATTEND Obstetrics & Gynecology
DX: Z34.93 Encounter for supervision of normal pregnancy, unspecified, third trimester (principal)
CPT/HCPCS: 80307; 81001

== ENCOUNTER 2020-02-27 11:14 | Emergency (ER) | payer SELFPAY ==
[2020-02-27 12:01] VITALS: BP 121/59
--- NOTE | 2020-02-27 12:09 | ER Document Report ---
ED Medical Screen (RME) - General Chief Complaint: Nausea/Vomiting/Diarrhea Stated Complaint: STOMACH PAIN,HEADACHE Time Seen by Provider: 02/27/20 11:56 Mode of Arrival: Ambulatory Information source: Patient Notes: 20-year-old female presents to ED for complaint of abdominal pain cramping nausea vomiting and diarrhea x3 days. She states she has had at least 3-4 emesis and 5 diarrhea stools today. She does have a history of depression does use vapor cigarette does not use alcohol or drugs. She is alert oriented respirations regular and unlabored speaking in full sentences. I have greeted and performed a rapid initial assessment of this patient. A comprehensive ED assessment and evaluation of the patient, analysis of test results and completion of medical decision making process will be conducted by an additional ED providers. TRAVEL OUTSIDE OF THE [place] IN LAST 30 DAYS: No - Related Data Allergies/Adverse Reactions: No Known Allergies Allergy (Verified 01/26/19 04:32) Past Medical History Renal/ Medical History: Denies: Hx Peritoneal Dialysis Past Surgical History: Reports: Other - Skin grafts Physical Exam - Vital signs Vitals: Temp Pulse Resp BP Pulse Ox 97.2 F 99 18 121/59 L 100 02/27/20 12:00 02/27/20 12:00 02/27/20 12:00 02/27/20 12:00 02/27/20 12:00 Course - Vital Signs Vital signs: Temp Pulse Resp BP Pulse Ox 97.2 F 99 18 121/59 L 100 02/27/20 12:00 02/27/20 12:00 02/27/20 12:00 02/27/20 12:00 02/27/20 12:00
== END 2020-02-27 14:29 | disposition home or self-care (01) ==
LOC: ER 11:14
DX: R11.2 Nausea with vomiting, unspecified (principal); R19.7 Diarrhea, unspecified; R10.9 Unspecified abdominal pain; Z72.0 Tobacco use; Z53.20 Procedure and treatment not carried out because of patient's decision for unspecified reasons
CPT/HCPCS: 99281

== ENCOUNTER 2020-02-27 12:06 | Outpatient (CLI) | payer SELFPAY ==
[2020-02-27 12:42] LABS: APPEARANCE,URINE SLIGHTLY-CLOUDY; BILIRUBIN,URINE NEGATIVE (NEGATIVE); COLOR,URINE AMBER; GLUCOSE, URINE NEGATIVE (NEGATIVE); KETONES,URINE TRACE mg/dL (NEGATIVE); LEUKOCYTE ESTERASE,URINE NEGATIVE (NEGATIVE); NITRITE,URINE NEGATIVE (NEGATIVE); PROTEIN,URINE 100 mg/dL (NEGATIVE); URINE SPECIFIC GRAVITY 1.033
[2020-02-27 13:07] LABS: URINE AMPHETAMINES SCREEN NEGATIVE; URINE BARBITURATES SCREEN NEGATIVE; URINE BENZODIAZEPINES SCREEN NEGATIVE; URINE COCAINE SCREEN NEGATIVE; URINE MARIJUANA (THC) SCREEN NEGATIVE; URINE METHADONE SCREEN NEGATIVE; URINE PHENCYCLIDINE SCREEN NEGATIVE
--- NOTE | 2020-02-27 14:51 | Non Stress Test Report ---
Non Stress Test Datetime Report Generated by CPN: 02/27/2020 14:51 DEMOGRAPHIC Test Number: 1 EGA NST: 32.2 EGA NST: 29.1 INDICATION Indication for Study (NST) Other: IUP at 32.2, labor check VITAL SIGNS Temperature - NST: 97.8 Pulse - NST: 71 RESP - NST: 14 NBPSYS NST: 130 NBPDIA NST: 65 MONITORING Monitor Explained: Monitor Explained; Test Explained; Patient Verbalized Understanding Time on Monitor: 02/27/2020 12:25 Time on Monitor: 02/05/2020 23:00 Time off Monitor: 02/27/2020 14:30 Time off Monitor: 02/06/2020 00:03 NST Duration: 125 NST Duration: 63 NST INTERVENTIONS NST Interventions: PO Hydration BABY A: [id number] BABY A Movement : Present Movement : Present Contraction Frequency : Occassional Contraction Frequency : irr FHR Baseline : 130 FHR Baseline : 135 Accelerations : 15X15 Decelerations : None Variability : Moderate 6-25bpm Variability : Moderate 6-25bpm NST Review: Meets Criteria for Reactive NST NST Review and Verified By : DIANA Ribeiro NST Review and Verified By : approjeffery for gestational age NST Results: Reactive NST REPORT Report Trigger: Send Report
== END 2020-02-27 15:01 | disposition home or self-care (01) ==
LOC: LC 12:06
PROVIDERS: ATTEND Obstetrics & Gynecology
DX: O26.893 Other specified pregnancy related conditions, third trimester (principal); R42 Dizziness and giddiness; R11.0 Nausea; Z3A.32 32 weeks gestation of pregnancy
CPT/HCPCS: 59025; 80307; 81001; 82962

== ENCOUNTER 2020-04-10 12:57 | Outpatient (CLI) | payer MEDICAID ==
[2020-04-10 13:56] LABS: APPEARANCE,URINE CLEAR; BILIRUBIN,URINE NEGATIVE (NEGATIVE); COLOR,URINE YELLOW; GLUCOSE, URINE NEGATIVE (NEGATIVE); KETONES,URINE NEGATIVE (NEGATIVE); LEUKOCYTE ESTERASE,URINE TRACE (NEGATIVE); NITRITE,URINE NEGATIVE (NEGATIVE); PROTEIN,URINE NEGATIVE (NEGATIVE); URINE SPECIFIC GRAVITY 1.023; UROBILINOGEN,URINE NEGATIVE mg/dL (<2.0)
[2020-04-10 14:29] LABS: URINE AMPHETAMINES SCREEN NEGATIVE; URINE BARBITURATES SCREEN NEGATIVE; URINE BENZODIAZEPINES SCREEN NEGATIVE; URINE COCAINE SCREEN NEGATIVE; URINE MARIJUANA (THC) SCREEN NEGATIVE; URINE METHADONE SCREEN NEGATIVE; URINE PHENCYCLIDINE SCREEN NEGATIVE
--- NOTE | 2020-04-10 15:07 | RADIOLOGY REPORT (SQ) ---
EXAM DESCRIPTION: U/S OB 14+ TRNABD 1GES W/O DOP IMAGES COMPLETED DATE/TIME: 04/10/2020 2:31 pm REASON FOR STUDY: no care, no anatomy scan COMPARISON: 02/05/2020 TECHNIQUE: Static and Dynamic grayscale imaging performed of gravid uterus using transabdominal appr oach. Additional selected color Doppler and spectral images recorded. All stored on PACS. LIMITATIONS: Limited anatomy evaluation due to positioning and gestational age. FINDINGS: FETUSES SEEN:1 EGA: 35 weeks 4 days Calculated using BPD,FL,HC,AC documented on images. Discrepancy with clinical d ates KIT: 05/11/2020 EFW: 2,814 grams PERCENTILE: 16 PEDRO: 8.7 PLACENTA: Posterior. GRADE: I PRESENTATION: Cephalic. ANATOMY: HEART RATE: 131 beats per minute. FOUR CHAMBER HEART: Visualized. THREE VESSEL CORD: Yes. CORD INSERTION: Not visualized. KIDNEYS AND BLADDER: Visualized. Appear normal. STOMACH: Visualized. Appears normal. SPINE: Normal as visualized. BRAIN AND LATERAL VENTRICLES: Not visualized. OTHER: No other significant finding. MATERNAL ADNEXA: Maternal ovaries not visualized. CERVICAL LENGTH: Not visualized. OTHER: No other significant finding. IMPRESSION: LIVING INTRAUTERINE . ESTIMATED GESTATIONAL AGE 35 weeks 4 days. LIMITED VISUALIZATION OF ANATOMY. Trimester of : Third trimester - 28 weeks to delivery. TECHNICAL DOCUMENTATION: JOB ID: [id number] 2010 [employer]- All Rights Reserved Reading location - IP/workstation name: [email or web address]
[2020-04-10 15:17] LABS: ABSOLUTE LYMPHOCYTES (AUTO) 1.3 10^3/uL (0.5-4.7); ABSOLUTE MONOCYTES (AUTO) 0.5 10^3/uL (0.1-1.4); BASOPHILS % (AUTO) 0.5 % (0-2); EOSINOPHILS % (AUTO) 0.1 % (0-6); HEMATOCRIT 32.2 % (36.0-47.0); HEMOGLOBIN 10.3 g/dL (12.0-15.5); LYMPHOCYTES % (AUTO) 14.6 % (13-45); MEAN CORPUSCULAR HEMOGLOBIN 25.4 pg (27.0-33.4); MEAN CORPUSCULAR VOLUME 79 fl (80-97); MONOCYTES % (AUTO) 5.6 % (3-13); PLATELET COUNT 214 10^3/uL (150-450); RED BLOOD COUNT 4.06 10^6/uL (3.72-5.28); SEGMENTED NEUTROPHILS % (AUTO) 79.2 % (42-78); TOTAL CELLS COUNTED % (AUTO) 100 %; WHITE BLOOD COUNT 8.8 10^3/uL (4.0-10.5)
[2020-04-10 15:28] LABS: CHLAM PCR NOT DETECTED (NOT DETECT)
--- NOTE | 2020-04-10 15:48 | Non Stress Test Report ---
Non Stress Test Datetime Report Generated by CPN: 04/10/2020 15:47 DEMOGRAPHIC Test Number: 3 EGA NST: 38.3 INDICATION Indication for Study (NST) Other: sporadic care, labs, US VITAL SIGNS Temperature - NST: 97.9 Pulse - NST: 71 RESP - NST: 17 NBPSYS NST: 133 NBPDIA NST: 73 MONITORING Monitor Explained: Monitor Explained; Test Explained; Patient Verbalized Understanding Time on Monitor: 04/10/2020 14:29 Time off Monitor: 04/10/2020 15:19 NST Duration: 50 NST INTERVENTIONS NST Interventions: PO Hydration; Reposition Patient Physician Notified NST: J. Ahn, CNM BABY A: [id number] BABY A Movement : Present Contraction Frequency : occasional, irregular FHR Baseline : 125 Accelerations : 15X15 Decelerations : None Variability : Moderate 6-25bpm NST Review: Meets Criteria for Reactive NST NST Review and Verified By : DIANA Leger Results: Reactive NST REPORT Report Trigger: Send Report
[2020-04-12 07:17] LABS: HEPATITS B SURFACE ANTIGEN Negative (Negative)
== END 2020-04-10 15:38 | disposition home or self-care (01) ==
LOC: LC 12:57
PROVIDERS: ATTEND Obstetrics & Gynecology
DX: O09.33 Supervision of pregnancy with insufficient antenatal care, third trimester (principal); Z3A.35 35 weeks gestation of pregnancy; Z02.83 Encounter for blood-alcohol and blood-drug test
CPT/HCPCS: 36415; 59025; 76805; 80307; 81001; 85025; 86592; 86701; 86850; 86900; 86901; 87081; 87340; 87491; 87591

== ENCOUNTER 2020-04-13 09:39 | Inpatient (IN) | payer MEDICAID ==
[2020-04-13] MEDS ORDERED: OXYTOCIN/0.9 % SODIUM CHLORIDE 30 UNIT/500 ML RTUINJ ONE (09:56)
[2020-04-13] MEDS ORDERED: LIDOCAINE 1% INJ-PF (10 MG/ML) 30 ML SDV ONE (09:56)
[2020-04-13] MEDS ORDERED: OXYTOCIN 10 UNIT/ML VIAL ONE ×2 (09:56→10:19)
[2020-04-13] MEDS ORDERED: MISOPROSTOL 0.2 MG TABLET ONE (09:56)
[2020-04-13] MEDS ORDERED: RINGERS SOLUTION,LACTATED 1,000 ML IV ONE (09:58)
[2020-04-13] MEDS ORDERED: RINGERS SOLUTION,LACTATED 1,000 ML IV PRN (09:58)
[2020-04-13] MEDS ORDERED: FENTANYL CITRATE INJ/PF 100 MCG/2 ML AMPUL ONE (10:27)
--- NOTE | 2020-04-13 10:49 | Admission Physical ---
Datetime Report Generated by CPN: 04/13/2020 10:49 CURRENT ADMISSION Chief Complaint: Uterine Contractions Chief Complaint Other: Arrived by EMS with no care Indication for Induction: Not Applicable Admit Impression : Active Labor Admit Plan: Admit to Unit; Initiate Labor Protocol ALLERGIES Medication Allergies: No Medication Allergies: No Known Allergies (04/10/2020) Latex: No Latex Allergies OBSTETRICAL HISTORY EDC: 04/21/2020 00:00 : 2 Para: 1 Term: 1 : 0 SAB: 0 IAB: 0 Livin PHYSICAL EXAM General: Normal HEENT: Deferred Neurologic: Normal Thyroid: Deferred Heart: Normal Lungs: Normal Breast: Deferred Back: Deferred Abdomen: Normal Genitourinary Exam: Normal Extremities: Normal DTRs: Deferred Pelvic Type: Not Done Physical Exam Comments: 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 Ledezma Vital Signs: Reviewed VAGINAL EXAM Dilatation: 9 MEMBRANES Membranes: Intact FETUS A EGA: 38.6 FHR- Baseline: 135 Variability: Moderate 6-25bpm Decelerations: None Admit Comment: KIT 04/21/20 by US in January done here. A+. GBS neg from labor check last week. NO care this . Hx GDM last ( 2019). She arrived today via EMS with urge to push and intact membranes. INFORMED CONSENT Assignment: Heather Ledezma MD Signature: with User ID: [email or web address] : with User ID: [email or web address]
[2020-04-13] MEDS ORDERED: OXYTOCIN 10 UNIT/ML VIAL IM PRN (10:57)
[2020-04-13] MEDS ORDERED: FENTANYL CITRATE INJ/PF 100 MCG/2 ML AMPUL IV ONE (10:59)
[2020-04-13] MEDS ORDERED: PROMETHAZINE HCL INJ 25 MG/1 ML VIAL IV PRN (10:59)
[2020-04-13] MEDS ORDERED: BENZOCAINE/MENTHOL AEROSOL SPRAY 56 ML TOP PRN (10:59)
[2020-04-13] MEDS ORDERED: ACETAMINOPHEN 650 MG SUPP.RECT PR PRN (10:59)
[2020-04-13] MEDS ORDERED: NA PHOS,M-B/NA PHOS,DI-BA (ADULT) 133 ML ENEMA PR PRN (10:59)
[2020-04-13] MEDS ORDERED: PROMETHAZINE HCL 25 MG TABLET PO PRN (10:59)
[2020-04-13] MEDS ORDERED: PROMETHAZINE HCL 25 MG SUPP.RECT PR PRN (10:59)
[2020-04-13] MEDS ORDERED: DIPHENHYDRAMINE HCL 25 MG CAPSULE PO PRN (10:59)
[2020-04-13] MEDS ORDERED: GLYCERIN/WITCH HAZEL LEAF 1 EACH MED..WIPE TP PRN (10:59)
[2020-04-13] MEDS ORDERED: MISOPROSTOL 0.2 MG TABLET PR PRN (10:59)
[2020-04-13] MEDS ORDERED: DIBUCAINE 1% OINTMENT 28 GM TP PRN (10:59)
[2020-04-13] MEDS ORDERED: PSEUDOEPHEDRINE HCL 30 MG TABLET PO PRN (10:59)
[2020-04-13] MEDS ORDERED: ZOLPIDEM TARTRATE 5 MG TABLET PO PRN (10:59)
[2020-04-13] MEDS ORDERED: MAGNESIUM HYDROXIDE SUSP 30 ML UDCUP PO PRN (10:59)
[2020-04-13] MEDS ORDERED: OXYTOCIN/0.9 % SODIUM CHLORIDE 30 UNIT/500 ML RTUINJ IV PRN (10:59)
[2020-04-13] MEDS ORDERED: MEASLES,MUMPS&RUBELLA VACC/PF 0.5 ML VIAL SUBCUT PRN (10:59)
[2020-04-13] MEDS ORDERED: DIPH/PERTUSS(ACELL)/TETANUS VAC/PF 0.5 ML SYR (>=10YO) IM PRN (10:59)
[2020-04-13] MEDS ORDERED: ACETAMINOPHEN WITH CODEINE #3 TABLET PO PRN ×2 (10:59)
[2020-04-13 11:29] LABS: RBCS (WET MOUNT) 4+ RBCS SEEN; T.VAGINALIS (WET MOUNT) COULD NOT PERFORM; WBCS (WET MOUNT) 1+ WBCS SEEN; YEAST (WET MOUNT) NO YEAST SEEN
[2020-04-13 11:30] LABS: BACTERIA (WET MOUNT) 4+ BACTERIA SEEN
[2020-04-13 11:31] LABS: EPITHELIALS (WET MOUNT) 3+ EPITHELIALS SEEN
[2020-04-13] MEDS ORDERED: ACETAMINOPHEN 325 MG TABLET ONE (11:44)
[2020-04-13 11:48] LABS: APPEARANCE,URINE CLEAR; BILIRUBIN,URINE NEGATIVE (NEGATIVE); COLOR,URINE YELLOW; GLUCOSE, URINE NEGATIVE (NEGATIVE); KETONES,URINE 80 mg/dL (NEGATIVE); PROTEIN,URINE 100 mg/dL (NEGATIVE); URINE SPECIFIC GRAVITY 1.017; UROBILINOGEN,URINE NEGATIVE mg/dL (<2.0)
[2020-04-13] MEDS ORDERED: ACETAMINOPHEN 325 MG TABLET PO ONE (12:15)
[2020-04-13 12:50] LABS: HEMATOCRIT 30.8 % (36.0-47.0); HEMOGLOBIN 9.7 g/dL (12.0-15.5); MEAN CORPUSCULAR HEMOGLOBIN 24.8 pg (27.0-33.4); MEAN CORPUSCULAR HGB CONC 31.7 g/dL (32.0-36.0); MEAN CORPUSCULAR VOLUME 78 fl (80-97); PLATELET COUNT 230 10^3/uL (150-450); RED BLOOD COUNT 3.94 10^6/uL (3.72-5.28); RED CELL DISTRIBUTION WIDTH 17.1 % (11.5-14.0)
[2020-04-13 12:53] LABS: CHLAM PCR NOT DETECTED (NOT DETECT)
[2020-04-13 13:01] LABS: WHITE BLOOD COUNT 19.2 10^3/uL (4.0-10.5)
--- NOTE | 2020-04-13 13:11 | Birth Certificate Data ---
Cert Data Datetime Report Generated by [facility]: 04/13/2020 13:11 CERTIFICATE DATA Delivery Provider: Heather Ledezma MD (Annotations: Data stored by [facility] on behalf of user) (02/06/2020 00:41:Shakila Huynh CNM) 47a. Care: No (02/06/2020 00:41:Holly Hdez RN) 48a. Number of Prev Live Births: 1 (02/06/2020 00:41:Holly Hdez RN) 48b. Now Livin (02/06/2020 00:41:Christina Alonzo RN) 48c. Live Births Now : 0 (02/06/2020 00:41:QS system process) 48e. Losses: 0 (02/06/2020 00:41:Holly Hdez RN) RISK FACTORS IN THIS 49a. Diabetes: No (02/06/2020 00:41:Holly Hdez RN) 49b. Hypertension: No (02/06/2020 00:41:Holly Hdez RN) 49c. Previous Births: 0 (02/06/2020 00:41:Christina Alonzo RN) 49d. Stillborns: No (02/06/2020 00:41:Holly Hdez RN) 49d. IUGR: No (02/06/2020 00:41:Holly Hdez RN) 49e. Infertility Treatment: No (02/06/2020 00:41:Holly Hdez RN) 49f. Previous Cesareans: 0 (02/06/2020 00:41:Holly Hdez RN) Mother's Height 50b. Height Inches: 65 (04/10/2020 13:33:QS system process) Mother's Weight 51a. Pre- Weight (lbs): 114 (02/06/2020 00:41:Holly Hdez RN) 51b. Weight at Delivery (lbs): 128 (04/13/2020 12:40:QS system process) Infections Present/Treated 53a. Gonorrhea: No (02/06/2020 00:41:Holly Hdez RN) Results this Hospital Visit : Negative (02/06/2020 00:41:Holly Hdez RN) 53b. Syphilis: No (02/06/2020 00:41:Holly Hdez RN) Results this Hospital Visit: NONREACTIVE (04/10/2020 14:40:QS system process) 53c. Chlamydia: No (02/06/2020 00:41:Holly Hdez RN) Results this Hospital Visit: Negative (02/06/2020 00:41:Holly Hdez RN) 53d. Hepatitis B: No (02/06/2020 00:41:Holly Hdez RN) Results this Hospital Visit: Negative (02/06/2020 00:41:Holly Hdez RN) 53h. Mother Tested for HBsAG: Yes (02/06/2020 00:41:Holly Hdez RN) 53i. Date Tested: 04/10/2020 00:00 (02/06/2020 00:41:Holly Hdez, RN) 53j. Test Result: Negative (02/06/2020 00:41:Holly Hdez, RN) Obstetric Procedures 54a, b, c. Obstetric Procedures: Ultrasound (02/06/2020 00:41:Holly Hdez, RN) Cigarette Smoking Cigarette Smoking: Never Smoker. [id number] (02/06/2020 00:41:Hollyana Hdez, RN) Onset of Labor 56b. Precipitous Labor <3 Hrs: 2 (02/06/2020 00:41:QS system process) 56c. Prolonged Labor > 20 Hrs: 2 (02/06/2020 00:41:QS system process) 57a. Induction of Labor: N/A (02/06/2020 00:41:Heather Ledezma MD (JOSH)) 57c. Non-Vertex Presentation A: Vertex (02/06/2020 00:41:Holly Hdez RN) 57d. Steroids - Lung Mat: None (02/06/2020 00:41:Heather Ledezma MD ([facility]OSH)) 57d. Steroids - Lung Mat: Not Applicable (02/06/2020 00:41:Heather Ledezma MD (BERTMOISE)) 57f. Mat [place] or Temp >100.4: 98.5 (02/06/2020 00:41:Holly Hdez RN) 57g. Moderate/Heavy Meconium: Clear (04/13/2020 10:16:Holly Hdez RN) 57h. Intolerance of Labor: N/A (02/06/2020 00:41:Holly Hdez RN) : N/A (02/06/2020 00:41:Holly Hdez RN) 57i. Epidural/Spinal Anesthesia: Intrathecal (Annotations: Data stored by CPN on behalf of user) (02/06/2020 00:41:Shakila Huynh CNM) Method of Delivery 58a. Forceps - Unsuccessful A: N/A (02/06/2020 00:41:Holly DIANA Hdez) 58b. Vacuum - Unsuccessful A: N/A (02/06/2020 00:41:Holly DIANA Hdez) 58c. Presentation at 58c. Presentation at - A : Vertex (02/06/2020 00:41:Hollyerich Hdez RN) 58c. Presentation at - A : N/A (02/06/2020 00:41:Holly Hdez RN) 58c. Presentation at - A : Cephalic (02/06/2020 00:41:Holly DIANA Hdez) Final Route and Method of Del 58d. Baby A Route/Delivery: Vaginal (02/06/2020 00:41:Holly Hdez RN) 58e. Trial of Labor Attempted: No (02/06/2020 00:41:Holly Hdez RN) 58e. Trial of Labor Attempted A: N/A (02/06/2020 00:41:Holly Hdez RN) Maternal Morbidity 59b. 3rd or 4th Degree Lacs: Perineal (02/06/2020 00:41:Heather Ledezma MD ([facility])) Birthweight Baby A: 3260 (02/06/2020 00:41:Nurys Gan RN) 60a. Pounds : 7 (02/06/2020 00:41:QS system process) 60b. Ounces: 3 (02/06/2020 00:41:QS system process) 61. GA at Delivery Baby A: 38.6 (02/06/2020 00:41:Hollyana Hdez RN) : Early Term- 37- 38.6 Weeks (02/06/2020 00:41:QS system process) 62a. 5 Minute Baby A: 9 (02/06/2020 00:41:QS system process)
[2020-04-13 13:12] LABS: ABSOLUTE LYMPHOCYTES# (MANUAL) 0.6 10^3/uL (0.5-4.7); ABSOLUTE MONOCYTES # (MANUAL) 0.4 10^3/uL (0.1-1.4); ANISOCYTOSIS 1+; BASOPHILS % (MANUAL) 0 % (0-2); EOSINOPHILS % (MANUAL) 0 % (0-6); LYMPHOCYTES % (MANUAL) 3 % (13-45); MONOCYTES % (MANUAL) 2 % (3-13); PLATELET COMMENT ADEQUATE; SEGMENTED NEUTROPHILS % (MAN) 95 % (42-78); TOTAL CELLS COUNTED 100
--- NOTE | 2020-04-13 13:12 | Delivery Summary ---
Del Sum A-C Datetime Report Generated by CPN: 04/13/2020 13:12 DELIVERY PERSONNEL DELIVERY PERSONNEL: [id number] Delivery Doctor:: Heather Ledzema MD (Annotations: Data stored by [facility] on behalf of user) Labor and Delivery Nurse:: Holly Hdez RN Nursery Nurse:: kd MESA Agile Scrum Master/VALVE FITTER: Janee Rome, CLINICAL PROGRAM MANAGER MATERNAL INFORMATION Delivery Anesthesia: None Medications After Delivery: Pitocin 30 Units in 500ml NS/D5W; Cytotec 1000mcg Per Rectum/Vagina Meds After Delivery Comment: Pitocin 20 units IM Estimated Blood Loss (ml): 100 Delivery QBL: 100 Maternal Complications: Precipitous Labor (<3hrs) Provider Comments: No h/o HSV and no prodrome or lesions. No care. VFI delivered in SUSAN presentation with compound left arm. Shoulders and body delivered without difficulty. Cord doubly clamped and cut. to maternal abdomen for NRP. Placenta delivered intact spontaneously. FF at U after cytotec. Right labial laceration repaired. Good hemostasis. Mother and baby stable upon provider leaving the room. LABOR SUMMARY EDC: 04/21/2020 00:00 No. Babies in Womb: 1 Attempted: No Labor Anesthesia: Intrathecal (Annotations: Data stored by N on behalf of user) LABOR INFORMATION Reason for Induction: Not Applicable Onset of Labor: 04/13/2020 08:00 Complete Dilatation: 04/13/2020 10:17 Oxytocin: N/A Group B Beta Strep: negative Antibiotics # of Doses: n/a Name of Antibiotic Given: n/a Steroids Given: None Reason Steroids Not Administered: Not Applicable MEMBRANES Membranes Rupture Method: Artificial Amniotic Fluid Color: Clear Amniotic Fluid Amount: Small STAGES OF LABOR Stage 1 hr: 2 Stage 1 min: 17 Stage 2 hr: 0 Stage 2 min: 1 Stage 3 hr: 0 Stage 3 min: 2 Total Time in Labor hr: 2 Total Time in Labor min: 20 VAGINAL DELIVERY Episiotomy: None Laceration #1: Perineal Laceration Extension #1: First Degree Laceration Repair: Yes Laceration Repair Note: right labial laceration repaired Sponge Count Correct: Yes Sharps Count Correct: Yes CSECTION DELIVERY Primary Indication: N/A Secondary Indication: N/A CSection Incidence: N/A Labor: N/A Elective: N/A CSection Incision: N/A BABY A INFORMATION Infant Delivery Date/Time: 04/13/2020 10:18 Method of Delivery: Vaginal Nurse Controlled Delivery: No Born in Route : No : N/A Forceps: N/A Vacuum Extraction: N/A Shoulder Dystocia : No PRESENTATION/POSITION BABY A Presentation: Cephalic Cephalic Presentation: Vertex Vertex Position: Right Occipital Anterior Breech Presentation: N/A PLACENTA INFORMATION BABY A Placenta Delivery Time : 04/13/2020 10:20 Placenta Method of Delivery: Spontaneous Placenta Status: Delivered SCORES BABY A Heart Rate 1 min: >100 bpm Resp Effort 1 min: Good Cry Reflex Irritability 1 min: Cough or Sneeze or Pulls Away Muscle Tone 1 min: Active Motion Color 1 min: Blue/Pale Resuscitation Effort 1 min: Tactile Stimulation SCORE 1 MIN: 8 Heart Rate 5 min: >100 bpm Resp Effort 5 min: Good Cry Reflex Irritability 5 min: Cough or Sneeze or Pulls Away Muscle Tone 5 min: Active Motion Color 5 min: Body [place], Extremities Blue SCORE 5 MIN: 9 INFANT INFORMATION BABY A Gestational Age at Delivery: 38.6 Gestational Status: Early Term- 37- 38.6 Weeks Infant Outcome : Liveborn Condition : Stable Infant Sex: Female IDENTIFICATION BABY A Verification Date/Time: 04/13/2020 10:25 ID Band Number: [id number] Mother's Name Verified: Yes Infant RN Verifying Infant: CAzar Pinzonck RN ; CAzar King, RN WEIGHT/LENGTH BABY A Infant Birthweight (gm): 3260 Infant Weight (lb): 7 Weight (oz): 3 Length (in): 19.75 Length (cm): 50.17 CORD INFORMATION BABY A No. Cord Vessels: 3 Nuchal Cord : N/A Nuchal Cord- Other: compound left hand Cord Blood Taken: Yes-For Storage (Mom's Blood type +) Suction: None ASSESSMENT BABY A Infant Complications: None Physical Findings at Delivery: Within Normal Limits Respirations: Appears Normal Skin to Skin: Yes Skin to Skin Time (min): 2 Senior Risk Manager/ALS Called : No Infant Care By: Kiera Rey RNC Transferred To: Nursery SIGNATURES Signature: with User ID: Liliana : I was personally available for consultation and serving as supervising physician for the MLP.
[2020-04-13 13:13] LABS: OVALOCYTES SLIGHT
[2020-04-13] MEDS: IBUPROFEN 800 MG TABLET PO SCH ×2 (14:00→21:37)
[2020-04-13 14:44] LABS: URINE AMPHETAMINES SCREEN NEGATIVE; URINE BARBITURATES SCREEN NEGATIVE; URINE BENZODIAZEPINES SCREEN NEGATIVE; URINE COCAINE SCREEN NEGATIVE; URINE MARIJUANA (THC) SCREEN NEGATIVE; URINE METHADONE SCREEN NEGATIVE; URINE PHENCYCLIDINE SCREEN NEGATIVE
[2020-04-13] MEDS: DOCUSATE SODIUM 100 MG CAPSULE PO SCH (18:08)
[2020-04-13] MEDS: FERROUS SULFATE 325 MG TABLET PO SCH (18:08)
[2020-04-13] MEDS: FAMOTIDINE 20 MG TABLET PO SCH (21:37)
[2020-04-14] MEDS: IBUPROFEN 800 MG TABLET PO SCH ×3 (06:30→21:37)
[2020-04-14 06:37] LABS: HEPATITIS C VIRUS AB <0.1 s/co ratio (0.0-0.9)
[2020-04-14 07:31] LABS: HEMATOCRIT 29.9 % (36.0-47.0); HEMOGLOBIN 9.7 g/dL (12.0-15.5); MEAN CORPUSCULAR HEMOGLOBIN 25.5 pg (27.0-33.4); MEAN CORPUSCULAR HGB CONC 32.4 g/dL (32.0-36.0); MEAN CORPUSCULAR VOLUME 79 fl (80-97); PLATELET COUNT 186 10^3/uL (150-450); RED CELL DISTRIBUTION WIDTH 17.3 % (11.5-14.0); WHITE BLOOD COUNT 13.8 10^3/uL (4.0-10.5)
[2020-04-14] MEDS: SENNOSIDES/DOCUSATE 8.6-50 MG 1 EACH TABLET PO SCH (09:59)
[2020-04-14] MEDS: DOCUSATE SODIUM 100 MG CAPSULE PO SCH ×2 (09:59→17:25)
[2020-04-14] MEDS: PRENATAL VITAMIN W DHA CAPSULE PO SCH (09:59)
[2020-04-14] MEDS: FERROUS SULFATE 325 MG TABLET PO SCH ×2 (10:00→17:25)
[2020-04-14] MEDS: FAMOTIDINE 20 MG TABLET PO SCH ×2 (10:00→21:37)
--- NOTE | 2020-04-14 12:22 | PDOC PROGRESS REPORT ---
Subjective-OB Progress Note for:: 04/14/20 Subjective: Pt doing well, no complaints. States pain is controlled, voiding w/o difficulty, reg diet, light bleeding w/o clots. Physical Exam (OB) Vital Signs: Temp Pulse Resp BP Pulse Ox 98.1 F 56 L 16 118/71 100 04/14/20 07:50 04/14/20 07:24 04/14/20 07:24 04/14/20 07:24 04/14/20 07:24 Intake & Output 04/13/20 04/14/20 04/15/20 06:59 06:59 06:59 Weight 58.2 kg - PIH/Pre-Eclampsia Clonus: Negative Headache: Absent Epigastric Pain: No Visual Changes: No - Maternal Morbidity 59. Maternal Morbidity (serious complications experinced by the mother associated with labor and delivery: None of the above - Lochia Lochia Amount: Scant < 10 ml Lochia Color: Rubra/Red - Abdomen Description: Soft Hernia Present: No Fundal Description: Firm, Midline Fundal Height: u/u - u/2 Objective-Diagnostic Laboratory: 04/14/20 06:54 04/13/20 04/13/20 04/14/20 12:30 12:30 06:54 WBC 19.2 H D 13.8 H RBC 3.94 3.80 Hgb 9.7 L 9.7 L Hct 30.8 L 29.9 L MCV 78 L 79 L MCH 24.8 L 25.5 L MCHC 31.7 L 32.4 RDW 17.1 H 17.3 H Plt Count 230 186 Seg Neutrophils % Not Reportable Blood Type A POSITIVE Antibody Screen NEGATIVE Assessment and Plan(PN) - Assessment and Plan (1) No care in current Qualifiers: Trimester: third trimester Qualified Code(s): O09.33 - Supervision of with insufficient care, third trimester Is this a current diagnosis for this admission?: Yes (2) Obstetric labial laceration, delivered, current hospitalization Is this a current diagnosis for this admission?: Yes (3) Precipitate labor, delivered, current hospitalization Is this a current diagnosis for this admission?: Yes (4) History of mantilla Is this a current diagnosis for this admission?: Yes - Time Spent with Patient Time with patient: Less than 15 minutes Medications reviewed and adjusted accordingly: Yes - Disposition Anticipated Discharge Disposition: Home, Self Care Anticipated Discharge Timeframe: within 24 hours
[2020-04-14 15:51] LABS: VARICELLA ZOSTER IGG AB 839 index (Immune >16)
[2020-04-15] MEDS: IBUPROFEN 800 MG TABLET PO SCH ×2 (06:09→13:06)
[2020-04-15 09:20] VITALS: BP 134/76
[2020-04-15] MEDS: FERROUS SULFATE 325 MG TABLET PO SCH (10:45)
[2020-04-15] MEDS: PRENATAL VITAMIN W DHA CAPSULE PO SCH (10:45)
[2020-04-15] MEDS: FAMOTIDINE 20 MG TABLET PO SCH (10:46)
[2020-04-15] MEDS: SENNOSIDES/DOCUSATE 8.6-50 MG 1 EACH TABLET PO SCH (10:46)
[2020-04-15] MEDS: DOCUSATE SODIUM 100 MG CAPSULE PO SCH (10:46)
--- NOTE | 2020-04-15 13:41 | PDOC DISCHARGE SUMMARY ---
Impression - Admit/DC Date/PCP Admission Date/Primary Care Provider: 04/13/20 09:58 Discharge Date: 04/15/20 - Discharge Diagnosis (1) No care in current Is this a current diagnosis for this admission?: Yes (2) Obstetric labial laceration, delivered, current hospitalization Is this a current diagnosis for this admission?: Yes (3) Precipitate labor, delivered, current hospitalization Is this a current diagnosis for this admission?: Yes (4) History of mantilla Is this a current diagnosis for this admission?: Yes - Additional Information Resuscitation Status: Full Code Discharge Diet: Regular Discharge Activity: Balance Activity w/Rest, Pelvic Rest Home Medications: 95/Iron Fum/Folic/Dha [ + Dha Combo Pack] 1 tab PO DAILY Acetaminophen [Tylenol] 325 mg PO DAILY 04/10/20 HPI Gestational Age: 38.6 Reason(s) for Admission: Onset of Labor Procedures: None Intrapartum Procedure(s): Spontaneous Vaginal Delivery Complication(s): Laceration-Labial Laceration-Degree: 1st Hospital Course 59. Maternal Morbidity (serious complications experinced by the mother associated with labor and delivery: None of the above Results Laboratory Results: WBC 13.8 10^3/uL (4.0-10.5) H 04/14/20 06:54 RBC 3.80 10^6/uL (3.72-5.28) 04/14/20 06:54 Hgb 9.7 g/dL (12.0-15.5) L 04/14/20 06:54 Hct 29.9 % (36.0-47.0) L 04/14/20 06:54 MCV 79 fl (80-97) L 04/14/20 06:54 MCH 25.5 pg (27.0-33.4) L 04/14/20 06:54 MCHC 32.4 g/dL (32.0-36.0) 04/14/20 06:54 RDW 17.3 % (11.5-14.0) H 04/14/20 06:54 Plt Count 186 10^3/uL (150-450) 04/14/20 06:54 Lymph % (Auto) Not Reportable 04/13/20 12:30 [place] % (Auto) Not Reportable 04/13/20 12:30 Eos % (Auto) Not Reportable 04/13/20 12:30 Baso % (Auto) Not Reportable 04/13/20 12:30 Absolute Neuts (auto) Not Reportable 04/13/20 12:30 Absolute Lymphs (auto) Not Reportable 04/13/20 12:30 Absolute Monos (auto) Not Reportable 04/13/20 12:30 Absolute Eos (auto) Not Reportable 04/13/20 12:30 Absolute Basos (auto) Not Reportable 04/13/20 12:30 Total Counted 100 04/13/20 12:30 Seg Neutrophils % Not Reportable 04/13/20 12:30 Seg Neuts % (Manual) 95 % (42-78) H 04/13/20 12:30 Lymphocytes % (Manual) 3 % (13-45) L 04/13/20 12:30 Monocytes % (Manual) 2 % (3-13) L 04/13/20 12:30 Eosinophils % (Manual) 0 % (0-6) 04/13/20 12:30 Basophils % (Manual) 0 % (0-2) 04/13/20 12:30 Abs Neuts (Manual) 18.2 10^3/uL (1.7-8.2) H 04/13/20 12:30 Abs Lymphs (Manual) 0.6 10^3/uL (0.5-4.7) 04/13/20 12:30 Abs Monocytes (Manual) 0.4 10^3/uL (0.1-1.4) 04/13/20 12:30 Absolute Eos (Manual) 0.0 10^3/uL (0.0-0.6) 04/13/20 12:30 Abs Basophils (Manual) 0.0 10^3/uL (0.0-0.2) 04/13/20 12:30 Platelet Comment ADEQUATE 04/13/20 12:30 Anisocytosis 1+ 04/13/20 12:30 Microcytosis SLIGHT 04/13/20 12:30 Ovalocytes SLIGHT 04/13/20 12:30 Urine Color YELLOW 04/13/20 10:25 Urine Appearance CLEAR 04/13/20 10:25 Urine pH 7.0 (5.0-9.0) 04/13/20 10:25 Ur Specific [place] 1.017 04/13/20 10:25 Urine Protein 100 mg/dL (NEGATIVE) H 04/13/20 10:25 Urine Glucose (UA) NEGATIVE mg/dL (NEGATIVE) 04/13/20 10:25 Urine Ketones 80 mg/dL (NEGATIVE) H 04/13/20 10:25 Urine Blood SMALL (NEGATIVE) H 04/13/20 10:25 Urine Nitrite (Reflex) NEGATIVE (NEGATIVE) 04/13/20 10:25 Urine Bilirubin NEGATIVE (NEGATIVE) 04/13/20 10:25 Urine Urobilinogen NEGATIVE mg/dL (<2.0) 04/13/20 10:25 Leukocyte Esterase Rfl NEGATIVE (NEGATIVE) 04/13/20 10:25 Urine RBC (Auto) 12 /HPF 04/13/20 10:25 Urine WBC (Reflex) 1 /HPF 04/13/20 10:25 Squamous Epi Cells Auto <1 /HPF 04/13/20 10:25 Urine Mucus (Auto) FEW /LPF 04/13/20 10:25 Urine Ascorbic Acid NEGATIVE (NEGATIVE) 04/13/20 10:25 Epi Cells (Wet Prep) 3+ EPITHELIALS SEEN 04/13/20 10:08 Bacteria (Wet Prep) 4+ BACTERIA SEEN 04/13/20 10:08 Trichomonas (Wet Prep) COULD NOT PERFORM 04/13/20 10:08 Vaginal WBC 1+ WBCS SEEN 04/13/20 10:08 Vaginal RBC 4+ RBCS SEEN 04/13/20 10:08 Vaginal Yeast NO YEAST SEEN 04/13/20 10:08 Urine Opiates Screen NEGATIVE 04/13/20 10:25 Urine Methadone Screen NEGATIVE 04/13/20 10:25 Ur Barbiturates Screen NEGATIVE 04/13/20 10:25 Ur Phencyclidine Scrn NEGATIVE 04/13/20 10:25 Ur Amphetamines Screen NEGATIVE 04/13/20 10:25 U Benzodiazepines Scrn NEGATIVE 04/13/20 10:25 Urine Cocaine Screen NEGATIVE 04/13/20 10:25 U Marijuana (THC) Screen NEGATIVE 04/13/20 10:25 Chlamydia DNA (PCR) NOT DETECTED (NOT DETECT) 04/13/20 10:25 HIV 1&2 Antibody NEGATIVE (NEGATIVE) 04/14/20 06:54 N.gonorrhoeae DNA (PCR) NOT DETECTED (NOT DETECT) 04/13/20 10:25 Rubella IgG Antibody 73.20 IU/mL 04/13/20 12:30 Rubella IgG Ab Interp POSITIVE 04/13/20 12:30 Blood Type A POSITIVE 04/13/20 12:30 Antibody Screen NEGATIVE 04/13/20 12:30 Plan Plan of Treatment: f/u at [facility] for [facility] in 4 wks [phone] Time Spent: Less than 30 Minutes
== END 2020-04-15 14:14 | disposition home or self-care (01) | DRG 807 ==
LOC: LC 09:39 → LR 09:58 → 2S 13:20
PROVIDERS: ADMIT Student in an Organized Health Care Education/Training Program; ATTEND Student in an Organized Health Care Education/Training Program
PROC: 10E0XZZ Delivery of Products of Conception, External Approach (ICD-10-PCS; principal; 2020-04-13)
PROC: 0UQMXZZ Repair Vulva, External Approach (ICD-10-PCS; 2020-04-13)
PROC: 10907ZC Drainage of Amniotic Fluid, Therapeutic from Products of Conception, Via Natural or Artificial Opening (ICD-10-PCS; 2020-04-13)
DX: O32.6XX0 Maternal care for compound presentation, not applicable or unspecified (principal); Z37.0 Single live birth; O62.3 Precipitate labor; O70.0 First degree perineal laceration during delivery; Z20.828 Contact with and (suspected) exposure to other viral communicable diseases; Z28.21 Immunization not carried out because of patient refusal; Z3A.38 38 weeks gestation of pregnancy
CPT/HCPCS: 36415; 80307; 81001; 85025; 85027; 86592; 86701; 86762; 86787; 86803; 86804; 86850; 86900; 86901; 87210; 87491; 87591; J2590; J3010; J3490